=== PATIENT | female | born 1940 | race Caucasian/White ===

== ENCOUNTER 2023-08-05 14:50 | Inpatient (IN) | payer MEDICARE, OTHER ==
[~2023-08-05] VITALS: Ht 165.1 cm; Wt 54.4 kg
[2023-08-05] MEDS ORDERED: FLUT1BLS4 IH (15:14)
[2023-08-05] MEDS ORDERED: POLY17PO4 PO (15:14)
[2023-08-05] MEDS ORDERED: PANT40TA49 PO (15:14)
[2023-08-05] MEDS ORDERED: LOPE2TAB25 PO (15:14)
[2023-08-05] MEDS ORDERED: FOLI0.8T23 PO (15:14)
[2023-08-05] MEDS ORDERED: MIRT7.5T10 PO (15:14)
[2023-08-05] MEDS ORDERED: APIX2.5T PO (15:14)
[2023-08-05] MEDS ORDERED: GLUC1KIT SQ (15:14)
[2023-08-05] MEDS ORDERED: TIOT18CA3 IH (15:14)
[2023-08-05] MEDS ORDERED: ATOR20TA PO (15:14)
[2023-08-05] MEDS ORDERED: BISA10SU61 RC (15:14)
[2023-08-05] MEDS ORDERED: ACET325C7 PO (15:14)
[2023-08-05] MEDS ORDERED: MIDO5TAB5 PO (15:14)
[2023-08-05] MEDS ORDERED: METO25TA6 PO (15:14)
[2023-08-05] MEDS ORDERED: LEVA0.635 IH (15:14)
[2023-08-05] MEDS ORDERED: AMIO200T5 PO (15:14)
[2023-08-05] MEDS ORDERED: GUAI100S69 PO (15:14)
[2023-08-05] MEDS ORDERED: AMIN30LI2 PO (15:14)
[2023-08-05] MEDS ORDERED: ONDA-104 PO (15:14)
[2023-08-05 15:21] LABS: BASOPHILS # (AUTO) 0.2 K/UL (0.0-0.2); BASOPHILS % (AUTO) 0.6 % (0.0-2.0); HEMATOCRIT 30.3 % (31.2-41.9); HEMOGLOBIN 9.4 g/dL (10.9-14.3); LYMPHOCYTES # (AUTO) 0.3 K/uL (0.8-4.8); LYMPHOCYTES % (AUTO) 0.9 % (20.5-51.5); MEAN CORPUSCULAR HEMOGLOBIN 30.4 uug (24.7-32.8); MEAN CORPUSCULAR HGB CONC 31 g/dL (32.3-35.6); MEAN CORPUSCULAR VOLUME 98.6 fL (75.5-95.3); MONOCYTES # (AUTO) 0.4 K/uL (0.1-1.30); MONOCYTES % (AUTO) 1.3 % (0.0-11.0); NEUTROPHILS # (AUTO) 31.5 K/uL (1.8-8.9); NEUTROPHILS % (AUTO) 97.2 % (38.5-71.5); PLATELET COUNT (AUTO) 169 K/uL (179-408); RED BLOOD CELL COUNT(AUTO) 3.07 MIL/uL (3.63-4.92); RED CELL DISTRIBUTION WIDTH 20.2 % (12.3-17.7)
[2023-08-05 15:27] LABS: DIFFERENTIAL COMMENT 1; WHITE BLOOD COUNT (AUTO) 32.4 K/uL (3.8-11.8)
[2023-08-05] MEDS ORDERED: VANCOMYCIN IV 1,000 MG in IV DEXTROSE 5% 250 ML IV ONE (15:30)
[2023-08-05] MEDS ORDERED: MEROPENEM 1,000 MG in IV NORMAL SALINE 100 ML IV ONE (15:30)
[2023-08-05] MEDS ORDERED: VANCOMYCIN IV 200 ML ONE (15:35)
[2023-08-05] MEDS ORDERED: MEROPENEM 1GM/NS 100ML IVPB **ER PYXIS ONLY IV ONE (15:35)
[2023-08-05 15:44] LABS: CALCIUM 8.3 mg/dL (8.5-10.1); CARBON DIOXIDE 27 mmol/L (21-32); CHLORIDE 100 mmol/L (98-107); GLUCOSE 65 mg/dL (74-106); POTASSIUM 4.4 mmol/L (3.5-5.1); SODIUM SERUM 140 mmol/L (136-145); UREA NITROGEN, BLOOD 35 mg/dL (7-18)
[2023-08-05 15:58] LABS: ALANINE AMINOTRANSFERASE 34 U/L (14-59); ALBUMIN 1.7 g/dL (3.4-5.0); ALKALINE PHOSPHATASE 100 U/L (50-136); ASPARTATE AMINOTRANSFERASE 28 U/L (15-37); BILIRUBIN,DIRECT 0.1 mg/dL (0.0-0.2); BILIRUBIN,TOTAL 0.4 mg/dL (0.2-1.0); NT-PRO BNP 24298 pg/mL (0-125); TOTAL PROTEIN, SERUM 5.7 g/dL (6.4-8.2)
[2023-08-05 15:59] LABS: MAGNESIUM 1.8 mg/dL (1.8-2.4); PHOSPHOROUS 3.1 mg/dL (2.5-4.9)
[2023-08-05 16:08] LABS: ABG BASE EXCESS 1.7 mmol/L (-2.0-2.0); ABG HCO3 25.7 mmol/L (22.0-26.0); ABG PCO2 37.8 mmHg (35.0-48.0); ABG PO2 54.2 mmHg (75.0-100.0); ABG TOTAL HEMOGLOBIN 9.6 G/dL (12.0-16.0); AaDO2 89.7 mmHg; COHb 0.5 % (0.0-3.9); MetHb 0.4 % (0.0-1.5); O2Hb 87.4 % (94.0-97.0)
[2023-08-05] MEDS ORDERED: methylPREDNISolone SOD SUCC 40 MG/ML VIAL IV ONE (17:00)
[2023-08-05 17:30] VITALS: O2SAT 94
[2023-08-05] MEDS ORDERED: methylPREDNISolone SOD SUCC 40 MG/ML VIAL ONE (17:33)
[2023-08-05 18:16] VITALS: BP 121/49; TEMP 97.8; O2SAT 94
[2023-08-05 18:26] LABS: BAND % (MANUAL) 4 % (0-10)
[2023-08-05 18:27] LABS: ANISOCYTOSIS 1+; LYMPHOCYTES % (MANUAL) 4 % (20-40); MONOCYTES % (MANUAL) 2 % (2-10); NEUTROPHILS % (MANUAL) 90 % (42-75); PLATELET ESTIMATE ADEQUATE
[2023-08-05 20:00] VITALS: BP 101/54; TEMP 98.1; O2SAT 96
[2023-08-05] MEDS ORDERED: ZOLPIDEM 5 MG TABLET PO PRN (22:30)
[2023-08-05] MEDS ORDERED: ONDANSETRON 4 MG/2 ML VIAL IV PRN (22:30)
[2023-08-05] MEDS ORDERED: MAGNESIUM HYDROXIDE 30 ML LIQUID UDC PO PRN (22:30)
[2023-08-05] MEDS ORDERED: REMEDY ESSENTIAL ZINC PASTE 113 GM TP PRN (22:30)
[2023-08-05] MEDS: methylPREDNISolone SOD SUCC 40 MG/ML VIAL IV SCH (23:41)
[2023-08-06] VITALS (12 sets, daily range): BP systolic 111–164; BP diastolic 47–97; TEMP 98–98.6; O2SAT 94–99
[2023-08-06] MEDS: ALBUTEROL SULFATE 2.5 MG/ 0.5 ML NEBU NEB SCH ×2 (01:30→01:45)
[2023-08-06] MEDS: IPRATROPIUM BROMIDE 0.5 MG/2.5 ML NEBU NEB SCH ×5 (01:30→19:18)
[2023-08-06] MEDS: methylPREDNISolone SOD SUCC 40 MG/ML VIAL IV SCH ×3 (06:00→21:01)
[2023-08-06] MEDS ORDERED: MEROPENEM 1 G in IV NORMAL SALINE 100 ML IV ONE (06:00)
[2023-08-06 07:36] LABS: BASOPHILS # (AUTO) 0.1 K/UL (0.0-0.2); BASOPHILS % (AUTO) 0.2 % (0.0-2.0); DIFFERENTIAL COMMENT 1; HEMATOCRIT 25.9 % (31.2-41.9); HEMOGLOBIN 8.3 g/dL (10.9-14.3); LYMPHOCYTES # (AUTO) 0.1 K/uL (0.8-4.8); LYMPHOCYTES % (AUTO) 0.5 % (20.5-51.5); MEAN CORPUSCULAR HEMOGLOBIN 31.1 uug (24.7-32.8); MEAN CORPUSCULAR HGB CONC 32 g/dL (32.3-35.6); MEAN CORPUSCULAR VOLUME 96.2 fL (75.5-95.3); MONOCYTES # (AUTO) 0.2 K/uL (0.1-1.30); MONOCYTES % (AUTO) 0.6 % (0.0-11.0); NEUTROPHILS # (AUTO) 27.4 K/uL (1.8-8.9); NEUTROPHILS % (AUTO) 98.7 % (38.5-71.5); PLATELET COUNT (AUTO) 200 K/uL (179-408); RED BLOOD CELL COUNT(AUTO) 2.69 MIL/uL (3.63-4.92); RED CELL DISTRIBUTION WIDTH 20.5 % (12.3-17.7); WHITE BLOOD COUNT (AUTO) 27.7 K/uL (3.8-11.8)
[2023-08-06] MEDS: ALBUTEROL SULFATE 2.5 MG/3 ML NEBU NEB SCH ×3 (08:25→19:18)
[2023-08-06 09:13] LABS: CALCIUM 8.3 mg/dL (8.5-10.1); CARBON DIOXIDE 25 mmol/L (21-32); CHLORIDE 100 mmol/L (98-107); CHOLESTEROL 146 mg/dL (<200); CREATININE 3.7 mg/dL (0.6-1.3); GLUCOSE 79 mg/dL (74-106); HDL CHOLESTEROL 58 mg/dL (40-60); MAGNESIUM 1.8 mg/dL (1.8-2.4); PHOSPHOROUS 5.5 mg/dL (2.5-4.9); POTASSIUM 5.2 mmol/L (3.5-5.1); SODIUM SERUM 139 mmol/L (136-145); TRIGLYCERIDES 76 MG/DL (30-150); UREA NITROGEN, BLOOD 48 mg/dL (7-18)
[2023-08-06] MEDS: ACETAMINOPHEN 325 MG TABLET PO PRN (13:26)
[2023-08-06] MEDS ORDERED: MEROPENEM 1 G in IV NORMAL SALINE 100 ML IV SCH (14:00)
[2023-08-06] MEDS ORDERED: ALBUTEROL SULFATE 2.5 MG/3 ML NEBU ONE (14:34)
[2023-08-06] MEDS ORDERED: IPRATROPIUM BROMIDE 0.5 MG/2.5 ML NEBU ONE (14:35)
[2023-08-06] MEDS: MEROPENEM 0.5 G in IV NORMAL SALINE 50 ML IV SCH (21:01)
[2023-08-07] VITALS (7 sets, daily range): BP systolic 117–152; BP diastolic 55–80; TEMP 97.4–98.1; O2SAT 94–99
[2023-08-07] MEDS: ALBUTEROL SULFATE 2.5 MG/3 ML NEBU NEB SCH ×4 (01:20→20:45)
[2023-08-07] MEDS: IPRATROPIUM BROMIDE 0.5 MG/2.5 ML NEBU NEB SCH ×4 (01:20→20:45)
[2023-08-07] MEDS: methylPREDNISolone SOD SUCC 40 MG/ML VIAL IV SCH ×3 (05:51→21:53)
[2023-08-07 08:27] LABS: BASOPHILS # (AUTO) 0.1 K/UL (0.0-0.2); BASOPHILS % (AUTO) 0.4 % (0.0-2.0); HEMATOCRIT 27.1 % (31.2-41.9); HEMOGLOBIN 8.6 g/dL (10.9-14.3); LYMPHOCYTES # (AUTO) 0.1 K/uL (0.8-4.8); LYMPHOCYTES % (AUTO) 0.6 % (20.5-51.5); MEAN CORPUSCULAR HEMOGLOBIN 30.7 uug (24.7-32.8); MEAN CORPUSCULAR HGB CONC 32 g/dL (32.3-35.6); MEAN CORPUSCULAR VOLUME 96.5 fL (75.5-95.3); MONOCYTES # (AUTO) 0.2 K/uL (0.1-1.30); MONOCYTES % (AUTO) 0.9 % (0.0-11.0); NEUTROPHILS # (AUTO) 23.5 K/uL (1.8-8.9); NEUTROPHILS % (AUTO) 98.1 % (38.5-71.5); PLATELET COUNT (AUTO) 221 K/uL (179-408); RED CELL DISTRIBUTION WIDTH 20.2 % (12.3-17.7)
[2023-08-07 08:36] LABS: DIFFERENTIAL COMMENT 1
[2023-08-07 09:14] LABS: CALCIUM 8.5 mg/dL (8.5-10.1); CARBON DIOXIDE 26 mmol/L (21-32); CHLORIDE 100 mmol/L (98-107); CREATININE 5.1 mg/dL (0.6-1.3); GLUCOSE 105 mg/dL (74-106); MAGNESIUM 1.9 mg/dL (1.8-2.4); PHOSPHOROUS 7.2 mg/dL (2.5-4.9); SODIUM SERUM 139 mmol/L (136-145); UREA NITROGEN, BLOOD 68 mg/dL (7-18)
[2023-08-07] MEDS ORDERED: VANCOMYCIN IV 500 MG in IV DEXTROSE 5% 100 ML IV PRN (09:45)
[2023-08-07 10:37] LABS: POTASSIUM 6.3 mmol/L (3.5-5.1)
[2023-08-07] MEDS: ACETAMINOPHEN 325 MG TABLET PO PRN ×2 (18:42→18:46)
[2023-08-07] MEDS: MEROPENEM 0.5 G in IV NORMAL SALINE 50 ML IV SCH (21:53)
[2023-08-08] VITALS (11 sets, daily range): BP systolic 93–127; BP diastolic 34–55; TEMP 97.6–98.2; O2SAT 94–99
[2023-08-08] MEDS: IPRATROPIUM BROMIDE 0.5 MG/2.5 ML NEBU NEB SCH ×4 (01:58→20:17)
[2023-08-08] MEDS: ALBUTEROL SULFATE 2.5 MG/3 ML NEBU NEB SCH ×4 (01:59→20:17)
[2023-08-08] MEDS: methylPREDNISolone SOD SUCC 40 MG/ML VIAL IV SCH ×3 (06:34→21:04)
[2023-08-08 07:28] LABS: BASOPHILS # (AUTO) 0.1 K/UL (0.0-0.2); BASOPHILS % (AUTO) 0.3 % (0.0-2.0); HEMATOCRIT 25.6 % (31.2-41.9); HEMOGLOBIN 8.2 g/dL (10.9-14.3); LYMPHOCYTES # (AUTO) 0.1 K/uL (0.8-4.8); LYMPHOCYTES % (AUTO) 0.6 % (20.5-51.5); MEAN CORPUSCULAR HGB CONC 32 g/dL (32.3-35.6); MEAN CORPUSCULAR VOLUME 96.4 fL (75.5-95.3); MONOCYTES # (AUTO) 0.2 K/uL (0.1-1.30); NEUTROPHILS # (AUTO) 20.6 K/uL (1.8-8.9); NEUTROPHILS % (AUTO) 98.1 % (38.5-71.5); PLATELET COUNT (AUTO) 159 K/uL (179-408); RED BLOOD CELL COUNT(AUTO) 2.65 MIL/uL (3.63-4.92); RED CELL DISTRIBUTION WIDTH 20.5 % (12.3-17.7)
[2023-08-08 07:42] LABS: DIFFERENTIAL COMMENT 1
[2023-08-08 08:19] LABS: CARBON DIOXIDE 28 mmol/L (21-32); CHLORIDE 105 mmol/L (98-107); CREATININE 3.6 mg/dL (0.6-1.3); FERRITIN 2310 ng/mL (8-252); GLUCOSE 87 mg/dL (74-106); LACTATE DEHYDROGENASE 223 U/L (81-234); MAGNESIUM 1.9 mg/dL (1.8-2.4); PHOSPHOROUS 5.4 mg/dL (2.5-4.9); POTASSIUM 4.8 mmol/L (3.5-5.1); SODIUM SERUM 145 mmol/L (136-145); UREA NITROGEN, BLOOD 45 mg/dL (7-18)
[2023-08-08 08:56] LABS: IRON, SERUM 12 ug/dL (50-175)
[2023-08-08 10:13] LABS: THYROID STIMULATING HORMONE 0.712 mIU/mL (0.358-3.740)
[2023-08-08] MEDS ORDERED: MIRALAX 17 GM POWD.PACK PO PRN (15:00)
[2023-08-08] MEDS ORDERED: DIATR MEGLU/DIATRIZOATE SODIUM 30 ML BOTTLE ONE (15:01)
[2023-08-08] MEDS ORDERED: SWABABLE VALVE TRANSFER SET EA MC ONE (16:57)
[2023-08-08] MEDS ORDERED: IV NORMAL SALINE 250 ML IV ONE (16:57)
[2023-08-08] MEDS ORDERED: IOHEXOL 300MG/ML 100 ML INFUS..BTL ONE (16:57)
[2023-08-08] MEDS: APIXABAN 2.5 MG TABLET PO SCH (18:03)
[2023-08-08] MEDS: METOPROLOL TARTRATE 25 MG TABLET PO SCH (18:03)
[2023-08-08] MEDS: ATORVASTATIN 20 MG TABLET PO SCH (21:03)
[2023-08-08] MEDS: MEROPENEM 0.5 G in IV NORMAL SALINE 50 ML IV SCH (21:03)
[2023-08-08] MEDS: MIRTAZAPINE 15 MG TABLET PO SCH (21:04)
[2023-08-09] VITALS (14 sets, daily range): BP systolic 93–151; BP diastolic 59–82; TEMP 97.6–98.6; O2SAT 94–99
[2023-08-09] MEDS: IPRATROPIUM BROMIDE 0.5 MG/2.5 ML NEBU NEB SCH ×4 (00:56→19:50)
[2023-08-09] MEDS: ALBUTEROL SULFATE 2.5 MG/3 ML NEBU NEB SCH ×4 (00:56→19:50)
[2023-08-09] MEDS: methylPREDNISolone SOD SUCC 40 MG/ML VIAL IV SCH ×3 (05:59→22:50)
[2023-08-09] MEDS: FOLIC ACID/VITAMIN B COMP W-C TABLET PO SCH (09:01)
[2023-08-09] MEDS: AMIODARONE HCL 200 MG TABLET PO SCH (09:02)
[2023-08-09] MEDS: METOPROLOL TARTRATE 25 MG TABLET PO SCH ×2 (09:02→17:37)
[2023-08-09] MEDS: APIXABAN 2.5 MG TABLET PO SCH (09:03)
[2023-08-09 10:16] LABS: ALANINE AMINOTRANSFERASE 20 U/L (14-59); ALBUMIN 1.7 g/dL (3.4-5.0); ALKALINE PHOSPHATASE 104 U/L (50-136); ASPARTATE AMINOTRANSFERASE 17 U/L (15-37); BILIRUBIN,TOTAL 0.4 mg/dL (0.2-1.0); CARBON DIOXIDE 25 mmol/L (21-32); CHLORIDE 101 mmol/L (98-107); CREATININE 4.5 mg/dL (0.6-1.3); GLUCOSE 109 mg/dL (74-106); POTASSIUM 5.2 mmol/L (3.5-5.1); SODIUM SERUM 141 mmol/L (136-145); TOTAL PROTEIN, SERUM 5.3 g/dL (6.4-8.2); UREA NITROGEN, BLOOD 61 mg/dL (7-18)
[2023-08-09 13:17] LABS: BASOPHILS % (AUTO) 0.3 % (0.0-2.0); HEMATOCRIT 26.7 % (31.2-41.9); HEMOGLOBIN 8.4 g/dL (10.9-14.3); LYMPHOCYTES # (AUTO) 0.1 K/uL (0.8-4.8); LYMPHOCYTES % (AUTO) 0.7 % (20.5-51.5); MEAN CORPUSCULAR HEMOGLOBIN 30.9 uug (24.7-32.8); MEAN CORPUSCULAR HGB CONC 31 g/dL (32.3-35.6); MEAN CORPUSCULAR VOLUME 98.8 fL (75.5-95.3); MONOCYTES # (AUTO) 0.1 K/uL (0.1-1.30); MONOCYTES % (AUTO) 0.9 % (0.0-11.0); NEUTROPHILS # (AUTO) 13.6 K/uL (1.8-8.9); NEUTROPHILS % (AUTO) 98.1 % (38.5-71.5); PLATELET COUNT (AUTO) 158 K/uL (179-408); RED CELL DISTRIBUTION WIDTH 21.5 % (12.3-17.7); WHITE BLOOD COUNT (AUTO) 13.9 K/uL (3.8-11.8)
[2023-08-09 13:25] LABS: DIFFERENTIAL COMMENT 1
[2023-08-09 13:33] LABS: CALCIUM 8.3 mg/dL (8.5-10.1); CARBON DIOXIDE 27 mmol/L (21-32); CHLORIDE 101 mmol/L (98-107); GLUCOSE 224 mg/dL (74-106); MAGNESIUM 1.9 mg/dL (1.8-2.4); PHOSPHOROUS 6.7 mg/dL (2.5-4.9); POTASSIUM 4.9 mmol/L (3.5-5.1); SODIUM SERUM 140 mmol/L (136-145); UREA NITROGEN, BLOOD 68 mg/dL (7-18)
[2023-08-09] MEDS: ACETAMINOPHEN 325 MG TABLET PO PRN (19:51)
[2023-08-09] MEDS ORDERED: ALBUMIN HUMAN 25% 100 ML IV PRN (21:15)
[2023-08-09] MEDS: MEROPENEM 0.5 G in IV NORMAL SALINE 50 ML IV SCH (22:49)
[2023-08-09] MEDS: ATORVASTATIN 20 MG TABLET PO SCH (22:50)
[2023-08-09] MEDS: MIRTAZAPINE 15 MG TABLET PO SCH (22:51)
[2023-08-10] VITALS (14 sets, daily range): BP systolic 118–160; BP diastolic 53–66; TEMP 97.8–98.4; O2SAT 92–99
[2023-08-10] MEDS: IPRATROPIUM BROMIDE 0.5 MG/2.5 ML NEBU NEB SCH ×5 (01:06→19:50)
[2023-08-10] MEDS: ALBUTEROL SULFATE 2.5 MG/3 ML NEBU NEB SCH ×5 (01:07→19:50)
[2023-08-10 02:11] LABS: *IMMUNOGLOBULIN G, SERUM 638 mg/dL (586-1602); IMMUNOGLOBULIN A, SERUM 97 mg/dL (64-422); IMMUNOGLOBULIN M, SERUM 54 mg/dL (26-217)
[2023-08-10 08:03] LABS: ALANINE AMINOTRANSFERASE 22 U/L (14-59); ALBUMIN 2.4 g/dL (3.4-5.0); ALKALINE PHOSPHATASE 107 U/L (50-136); ASPARTATE AMINOTRANSFERASE 10 U/L (15-37); BILIRUBIN,TOTAL 0.5 mg/dL (0.2-1.0); CALCIUM 8.3 mg/dL (8.5-10.1); CARBON DIOXIDE 31 mmol/L (21-32); CHLORIDE 102 mmol/L (98-107); CREATININE 2.8 mg/dL (0.6-1.3); GLUCOSE 137 mg/dL (74-106); SODIUM SERUM 141 mmol/L (136-145); TOTAL PROTEIN, SERUM 5.5 g/dL (6.4-8.2); UREA NITROGEN, BLOOD 39 mg/dL (7-18)
[2023-08-10 08:08] LABS: BASOPHILS % (AUTO) 0.2 % (0.0-2.0); DIFFERENTIAL COMMENT 0; LYMPHOCYTES # (AUTO) 0.1 K/uL (0.8-4.8); LYMPHOCYTES % (AUTO) 0.7 % (20.5-51.5); MEAN CORPUSCULAR HEMOGLOBIN 31.2 uug (24.7-32.8); MEAN CORPUSCULAR HGB CONC 32 g/dL (32.3-35.6); MEAN CORPUSCULAR VOLUME 96.4 fL (75.5-95.3); MONOCYTES # (AUTO) 0.1 K/uL (0.1-1.30); MONOCYTES % (AUTO) 0.7 % (0.0-11.0); NEUTROPHILS % (AUTO) 98.4 % (38.5-71.5); PLATELET COUNT (AUTO) 118 K/uL (179-408); RED CELL DISTRIBUTION WIDTH 19.7 % (12.3-17.7); WHITE BLOOD COUNT (AUTO) 10.1 K/uL (3.8-11.8)
[2023-08-10 08:11] LABS: RED BLOOD CELL COUNT(AUTO) 2.38 MIL/uL (3.63-4.92)
[2023-08-10 08:12] LABS: HEMOGLOBIN 7.4 g/dL (10.9-14.3)
[2023-08-10 08:18] LABS: MAGNESIUM 1.8 mg/dL (1.8-2.4); PHOSPHOROUS 3.5 mg/dL (2.5-4.9)
[2023-08-10] MEDS: METOPROLOL TARTRATE 25 MG TABLET PO SCH ×2 (08:34→17:41)
[2023-08-10] MEDS: FOLIC ACID/VITAMIN B COMP W-C TABLET PO SCH (08:34)
[2023-08-10] MEDS: methylPREDNISolone SOD SUCC 40 MG/ML VIAL IV SCH ×2 (08:34→20:42)
[2023-08-10] MEDS: AMIODARONE HCL 200 MG TABLET PO SCH (08:34)
[2023-08-10] MEDS: NEPRO (VANILLA) 237 ML CAN PO SCH (08:57)
[2023-08-10 10:09] LABS: CANCER AG, 125 59.8 U/mL (0.0-38.1); CANCER ANTIGEN 15-3 19.7 U/mL (0.0-25.0); CARBOHYDRATE ANTIGEN, 19-9 <2 U/mL (0-35); CARCINOEMBRYONIC AG (CEA) 10.8 ng/mL (0.0-4.7); FREE KAPPA LT CHAINS SERUM 57.8 mg/L (3.3-19.4); KAPPA/LAMBDA RATIO SERUM 1.61 (0.26-1.65)
[2023-08-10 14:45] LABS: HEMATOCRIT 24.6 % (31.2-41.9); HEMOGLOBIN 7.7 g/dL (10.9-14.3)
[2023-08-10] MEDS: MEROPENEM 0.5 G in IV NORMAL SALINE 50 ML IV SCH (20:42)
[2023-08-10] MEDS: MIRTAZAPINE 15 MG TABLET PO SCH (20:43)
[2023-08-10] MEDS: ATORVASTATIN 20 MG TABLET PO SCH (20:43)
[2023-08-11] VITALS (13 sets, daily range): BP systolic 100–158; BP diastolic 49–108; TEMP 97.6–98.4; O2SAT 90–99
[2023-08-11] MEDS: ALBUTEROL SULFATE 2.5 MG/3 ML NEBU NEB SCH ×4 (00:47→20:22)
[2023-08-11] MEDS: IPRATROPIUM BROMIDE 0.5 MG/2.5 ML NEBU NEB SCH ×4 (00:47→20:22)
[2023-08-11 06:06] LABS: A/G RATIO 0.7 (0.7-1.7); ALBUMIN 1.9 g/dL (2.9-4.4); ALPHA-1-GLOBULIN 0.5 g/dL (0.0-0.4); ALPHA-2-GLOBULIN 0.8 g/dL (0.4-1.0); BETA GLOBULIN 0.7 g/dL (0.7-1.3); GAMMA GLOBULIN 0.6 g/dL (0.4-1.8); GLOBULIN, TOTAL 2.6 g/dL (2.2-3.9); M-SPIKE Not Observed g/dL (Not Observed)
[2023-08-11 06:06] LABS: HEPATITIS B SURFACE AB, QUAL Non Reactive (.); HEPATITIS B SURFACE AG Negative (Negative)
[2023-08-11 07:39] LABS: BASOPHILS # (AUTO) 0.2 K/UL (0.0-0.2); BASOPHILS % (AUTO) 1.3 % (0.0-2.0); HEMATOCRIT 21.7 % (31.2-41.9); LYMPHOCYTES # (AUTO) 0.1 K/uL (0.8-4.8); MEAN CORPUSCULAR HEMOGLOBIN 30.9 uug (24.7-32.8); MEAN CORPUSCULAR HGB CONC 32 g/dL (32.3-35.6); MEAN CORPUSCULAR VOLUME 96.5 fL (75.5-95.3); MONOCYTES # (AUTO) 0.2 K/uL (0.1-1.30); MONOCYTES % (AUTO) 1.6 % (0.0-11.0); NEUTROPHILS # (AUTO) 12.5 K/uL (1.8-8.9); NEUTROPHILS % (AUTO) 96.1 % (38.5-71.5); PLATELET COUNT (AUTO) 151 K/uL (179-408); RED CELL DISTRIBUTION WIDTH 21.3 % (12.3-17.7)
[2023-08-11 07:59] LABS: ALANINE AMINOTRANSFERASE 19 U/L (14-59); ALBUMIN 2.3 g/dL (3.4-5.0); ALKALINE PHOSPHATASE 94 U/L (50-136); ASPARTATE AMINOTRANSFERASE 8 U/L (15-37); BILIRUBIN,TOTAL 0.5 mg/dL (0.2-1.0); CALCIUM 8.4 mg/dL (8.5-10.1); CARBON DIOXIDE 29 mmol/L (21-32); CHLORIDE 102 mmol/L (98-107); CREATININE 3.9 mg/dL (0.6-1.3); GLUCOSE 111 mg/dL (74-106); MAGNESIUM 1.9 mg/dL (1.8-2.4); PHOSPHOROUS 4.7 mg/dL (2.5-4.9); POTASSIUM 5.6 mmol/L (3.5-5.1); SODIUM SERUM 138 mmol/L (136-145); TOTAL PROTEIN, SERUM 5.3 g/dL (6.4-8.2)
[2023-08-11 08:27] LABS: DIFFERENTIAL COMMENT 1; RED BLOOD CELL COUNT(AUTO) 2.25 MIL/uL (3.63-4.92)
[2023-08-11] MEDS: METOPROLOL TARTRATE 25 MG TABLET PO SCH ×2 (08:27→17:07)
[2023-08-11] MEDS: methylPREDNISolone SOD SUCC 40 MG/ML VIAL IV SCH ×2 (08:27→20:46)
[2023-08-11] MEDS: AMIODARONE HCL 200 MG TABLET PO SCH (08:27)
[2023-08-11] MEDS: FOLIC ACID/VITAMIN B COMP W-C TABLET PO SCH (08:28)
[2023-08-11] MEDS: NEPRO (VANILLA) 237 ML CAN PO SCH (08:28)
[2023-08-11 08:30] LABS: UREA NITROGEN, BLOOD 82 mg/dL (7-18)
[2023-08-11] MEDS: ACETAMINOPHEN 325 MG TABLET PO PRN (12:29)
[2023-08-11] MEDS ORDERED: PHYTONADIONE 10 MG/1 ML AMPUL SQ ONE (16:15)
[2023-08-11] MEDS ORDERED: diphenhydrAMINE 50 MG/1 ML VIAL IV ONE (16:15)
[2023-08-11] MEDS ORDERED: ACETAMINOPHEN 325 MG TABLET PO PRN (16:25)
[2023-08-11] MEDS ORDERED: diphenhydrAMINE 50 MG/1 ML VIAL IV PRN (16:30)
[2023-08-11] MEDS: MEROPENEM 0.5 G in IV NORMAL SALINE 50 ML IV SCH (20:46)
[2023-08-11] MEDS: ATORVASTATIN 20 MG TABLET PO SCH (20:46)
[2023-08-11] MEDS: MIRTAZAPINE 15 MG TABLET PO SCH (20:47)
[2023-08-12 01:00] VITALS: O2SAT 90
[2023-08-12 01:10] VITALS: O2SAT 95
[2023-08-12] MEDS: IPRATROPIUM BROMIDE 0.5 MG/2.5 ML NEBU NEB SCH ×2 (01:31→07:35)
[2023-08-12] MEDS: ALBUTEROL SULFATE 2.5 MG/3 ML NEBU NEB SCH ×2 (01:31→07:35)
[2023-08-12 04:00] VITALS: BP 134/56; TEMP 98.5; O2SAT 98
[2023-08-12 07:10] VITALS: O2SAT 95
[2023-08-12 07:53] LABS: BASOPHILS # (AUTO) 0.1 K/UL (0.0-0.2); BASOPHILS % (AUTO) 0.6 % (0.0-2.0); EOSINOPHILS % (AUTO) 0.1 % (0.0-7.0); HEMATOCRIT 22.2 % (31.2-41.9); LYMPHOCYTES # (AUTO) 0.2 K/uL (0.8-4.8); MEAN CORPUSCULAR HEMOGLOBIN 30.7 uug (24.7-32.8); MEAN CORPUSCULAR HGB CONC 31 g/dL (32.3-35.6); MEAN CORPUSCULAR VOLUME 99.9 fL (75.5-95.3); MONOCYTES # (AUTO) 0.1 K/uL (0.1-1.30); MONOCYTES % (AUTO) 0.6 % (0.0-11.0); NEUTROPHILS # (AUTO) 15.1 K/uL (1.8-8.9); NEUTROPHILS % (AUTO) 97.7 % (38.5-71.5); PLATELET COUNT (AUTO) 196 K/uL (179-408); RED CELL DISTRIBUTION WIDTH 21.4 % (12.3-17.7); WHITE BLOOD COUNT (AUTO) 15.4 K/uL (3.8-11.8)
[2023-08-12 08:17] LABS: ALANINE AMINOTRANSFERASE 103 U/L (14-59); ALBUMIN 2.1 g/dL (3.4-5.0); ALKALINE PHOSPHATASE 88 U/L (50-136); ASPARTATE AMINOTRANSFERASE 123 U/L (15-37); BILIRUBIN,TOTAL 0.8 mg/dL (0.2-1.0); CALCIUM 8.3 mg/dL (8.5-10.1); CARBON DIOXIDE 21 mmol/L (21-32); CHLORIDE 101 mmol/L (98-107); CREATININE 4.9 mg/dL (0.6-1.3); GLUCOSE 174 mg/dL (74-106); SODIUM SERUM 138 mmol/L (136-145)
[2023-08-12 08:49] LABS: DIFFERENTIAL COMMENT 1; POTASSIUM 7.5 mmol/L (3.5-5.1); RED BLOOD CELL COUNT(AUTO) 2.23 MIL/uL (3.63-4.92); UREA NITROGEN, BLOOD 127 mg/dL (7-18)
[2023-08-12 08:50] LABS: HEMOGLOBIN 6.8 g/dL (10.9-14.3)
[2023-08-12] MEDS: methylPREDNISolone SOD SUCC 40 MG/ML VIAL IV SCH (09:00)
[2023-08-12] MEDS: NEPRO (VANILLA) 237 ML CAN PO SCH (09:00)
[2023-08-12] MEDS: AMIODARONE HCL 200 MG TABLET PO SCH (09:00)
[2023-08-12] MEDS: FOLIC ACID/VITAMIN B COMP W-C TABLET PO SCH (09:00)
[2023-08-12] MEDS: METOPROLOL TARTRATE 25 MG TABLET PO SCH (09:00)
[2023-08-12 09:18] LABS: MAGNESIUM 1.9 mg/dL (1.8-2.4); PHOSPHOROUS 7.3 mg/dL (2.5-4.9)
[2023-08-12 09:41] LABS: *OCCULT BLOOD STOOL POSITIVE (NEGATIVE)
[2023-08-12] MEDS ORDERED: APIXABAN 2.5 MG TABLET PO SCH (17:00)
== END 2023-08-12 08:55 | DRG 871 ==
LOC: ER 14:50 → TELE3 17:43 → MEDSURG3 08-10 10:00
PROVIDERS: ADMIT Nurse Practitioner Acute Care; ATTEND Nurse Practitioner Acute Care
PROC: 5A1D70Z Performance of Urinary Filtration, Intermittent, Less than 6 Hours Per Day (ICD-10-PCS; principal; 2023-08-07)
DX: A41.9 Sepsis, unspecified organism (principal); G92.8 Other toxic encephalopathy; N18.6 End stage renal disease; J15.69 Pneumonia due to other Gram-negative bacteria; J44.1 Chronic obstructive pulmonary disease with (acute) exacerbation; J44.0 Chronic obstructive pulmonary disease with (acute) lower respiratory infection; N39.0 Urinary tract infection, site not specified; C79.51 Secondary malignant neoplasm of bone; N13.1 Hydronephrosis with ureteral stricture, not elsewhere classified; Z66 Do not resuscitate; Y95 Nosocomial condition; E87.5 Hyperkalemia; R19.5 Other fecal abnormalities; R65.20 Severe sepsis without septic shock; D63.8 Anemia in other chronic diseases classified elsewhere; N32.0 Bladder-neck obstruction; I48.91 Unspecified atrial fibrillation; E11.22 Type 2 diabetes mellitus with diabetic chronic kidney disease; Z99.2 Dependence on renal dialysis; N25.0 Renal osteodystrophy; D53.9 Nutritional anemia, unspecified; Z79.899 Other long term (current) drug therapy; K44.9 Diaphragmatic hernia without obstruction or gangrene; Z86.19 Personal history of other infectious and parasitic diseases; K76.9 Liver disease, unspecified; N32.89 Other specified disorders of bladder; Z86.718 Personal history of other venous thrombosis and embolism; Z87.01 Personal history of pneumonia (recurrent); Z79.01 Long term (current) use of anticoagulants; Z79.51 Long term (current) use of inhaled steroids; Z79.4 Long term (current) use of insulin
CPT/HCPCS: 36415; 70030-TC; 71045; 71260; 76770; 82378; 82746; 82747; 82784; 83550; 83605; 83615; 83735; 84100; 84155; 84165; 84443; 84484; 85014; 85018; 85025; 85610; 85730; 86300; 86301; 86334; 86706; 86850; 86900; 86901; 86920; 87040; 87340; 93005; 94640; A4606; A4663; C1758; G0378; J2185; J2920; J3370; J3430; J3590; J7040; J7050; P9047; Q9963; Q9967